=== PATIENT | male | born 1980 ===

== ENCOUNTER 2017-05-31 15:35 | Emergency (ER) | payer OTHER ==
--- NOTE | 2017-05-31 16:19 | C.PDOC ---
History Of Present Illness 36-year-old male, is referred from urgent care for GI bleed, patient states that last week he had a recurrent migraine, had routine blood done at this clinic, and the blood level was found to be "low" states it was "13." Patient was advised need to see GI specialist, and states appointment is pending to be scheduled. Last night, patient had another recurrent headache, associated with new onset hematemesis. Patient states last episode at 12:30 this morning. He is now complaining of nausea, and abdominal discomfort. Patient states he gets migraines frequently and has a Hx of chronic NSAID use for it. He denies hx of peptic ulcer disease or other GI problems. Patient had an episode of dark stool last week which resolved. Denies pepto-bismol use. Time Seen by Provider: 05/31/17 16:09 Chief Complaint (Nursing): GI Problem History Per: Patient History/Exam Limitations: no limitations Onset/Duration Of Symptoms: Days Current Symptoms Are (Timing): Still Present Past Medical History Reviewed: Historical Data, Nursing Documentation, Vital Signs Vital Signs: Last Vital Signs Temp 98.3 F 05/31/17 15:57 Pulse 75 05/31/17 15:57 Resp 18 05/31/17 15:57 BP 126/74 05/31/17 15:57 Pulse Ox 98 05/31/17 17:25 - Medical History PMH: Migraine, Seizures Family History: States: No Known Family Hx - Social History Hx Alcohol Use: Yes Hx Substance Use: No - Immunization History Hx Tetanus Toxoid Vaccination: Yes Hx Influenza Vaccination: Yes Hx Pneumococcal Vaccination: No Review Of Systems Constitutional: Negative for: Fever, Chills Cardiovascular: Negative for: Chest Pain, Palpitations Respiratory: Negative for: Shortness of Breath Gastrointestinal: Positive for: Melena (now resolved), Hematemesis. Negative for: Nausea, Vomiting, Abdominal Pain Neurological: Positive for: Headache. Negative for: Weakness, Numbness Physical Exam - Physical Exam Appears: Non-toxic, No Acute Distress Skin: Normal Color, Warm, Dry, No Pale, No Rash Head: Normacephalic Eye(s): bilateral: PERRL, Other (no pallor) Nose: Normal Oral Mucosa: Moist Lips: Normal Appearing Neck: Normal ROM Chest: Symmetrical Cardiovascular: Rhythm Regular, No Murmur Respiratory: Normal Breath Sounds, No Accessory Muscle Use Extremity: Normal ROM, No Deformity, No Swelling Neurological/Psych: Oriented x3, Normal Speech ED Course And Treatment - Laboratory Results Result Diagrams: 05/31/17 16:33 05/31/17 16:33 O2 Sat by Pulse Oximetry: 98 (RA) Pulse Ox Interpretation: Normal Reevaluation Time: 18:33 Reassessment Condition: Improved (NO RECUR GI BLEED SINCE INITIAL EVAL. VSS APPEARS COMFORTABLE. ADVISED START ON ANTACIDS, DIET MOD, FU GI) Disposition Counseled Patient/Family Regarding: Studies Performed, Diagnosis, Need For Followup, Rx Given - Disposition Referrals: Tawanda Briceno MD [Staff Provider] - YOUR,PMD [Other] Disposition: HOME/ ROUTINE Disposition Time: 18:34 Condition: IMPROVED Prescriptions: Famotidine [Pepcid AC] 10 mg PO QN #30 tablet Omeprazole Magnesium [Prilosec Otc] 20 mg PO QPM #30 tab Ondansetron [Zofran Odt] 4 mg PO TID PRN #9 odt PRN Reason: Nausea/Vomiting Instructions: Gastrointestinal Bleeding (DC) Forms: [facility] (Bangladeshi), Work Excuse - Clinical Impression Clinical Impression: Hematemesis - Scribe Statement The provider has reviewed the documentation as recorded by the Scribe (Jeny Tolentino) All medical record entries made by the Scribe were at my direction and personally dictated by me. I have reviewed the chart and agree that the record accurately reflects my personal performance of the history, physical exam, medical decision making, and the department course for this patient. I have also personally directed, reviewed, and agree with the discharge instructions and disposition.
[2017-05-31] MEDS ORDERED: Iohexol 240 (50 ml) PO ONE (16:27)
[2017-05-31 16:36] LABS: BASO % 0.8 % (0.0-2.0); EOS # 0.4 K/uL (0.0-0.7); HEMOGLOBIN 11.3 g/dL (12.0-18.0); LYMPH # 1.7 K/uL (1.0-4.3); LYMPH % 33.8 % (20.0-40.0); MEAN CELL VOLUME 71.9 fL (80.0-94.0); MEAN CORPUSCULAR HEMOGLOBIN 23.6 pg (27.0-31.0); MEAN CORPUSCULAR HGB CONC 32.8 g/dL (33.0-37.0); MEAN PLATELET VOLUME 9.2 fL (7.2-11.7); MONO # 0.5 K/uL (0.0-0.8); MONO % 9.9 % (0.0-10.0); NEUT # 2.5 K/uL (1.8-7.0); NEUT % 48.5 % (50.0-75.0); NRBC % 0.1 % (0.0-2.0); RBC 4.81 Mil/uL (4.40-5.90); RED CELL DISTRIBUTION WIDTH 14.1 % (11.5-14.5); WHITE BLOOD COUNT 5.1 K/uL (4.8-10.8)
[2017-05-31] MEDS ORDERED: Iohexol 240 (50 ml) ONE (16:44)
[2017-05-31 16:46] LABS: INR 1.1; PROTHROMBIN TIME 12.3 SECONDS (9.7-12.2)
[2017-05-31 17:11] LABS: ALBUMIN 4.3 g/dL (3.5-5.0); ALT/SGPT 37 U/L (21-72); AST/SGOT 35 U/L (17-59); BLOOD UREA NITROGEN 14 mg/dL (9-20); GFR AFRICAN-AMERICAN > 60; GFR NON-AFRICAN AMERICAN > 60
[2017-05-31] MEDS ORDERED: Iohexol 300 100 ML IJ ONE (17:28)
--- NOTE | 2017-05-31 18:28 | CT ---
PROCEDURE: CT Abdomen and Pelvis with contrast HISTORY: Hematemesis, WT LOSS COMPARISON: None. TECHNIQUE: Contrast dose: 100 cc Omnipaque 300 Radiation dose: Total exam DLP = 1105.50 MGy-cm. This CT exam was performed using one or more of the following dose reduction techniques: Automated exposure control, adjustment of the mA and/or kV according to patient size, and/or use of iterative reconstruction technique. FINDINGS: LOWER THORAX: The lung bases are clear. LIVER: Normal in size with homogeneous enhancement. No gross lesion or ductal dilatation. GALLBLADDER AND BILE DUCTS: No calcified gallstones. PANCREAS: Normal in size with homogeneous enhancement. No gross lesion or ductal dilatation. SPLEEN: Normal in size and appearance. ADRENALS: No discrete nodule. KIDNEYS AND URETERS: Both kidneys are normal in size with homogeneous enhancement. No hydronephrosis. No solid mass. VASCULATURE: Unremarkable. No aortic aneurysm. BOWEL: The small bowel loops are normal in caliber. There is moderate amount of stool in the ascending and transverse colon. There is apparent mild mural thickening in the descending colon. There is mild left colonic diverticulosis. No bowel dilatation or obstruction. APPENDIX: Normal appendix. PERITONEUM: No free fluid. No free air. LYMPH NODES: No enlarged lymph nodes. BLADDER: The urinary bladder is partially decompressed. There is apparent moderate circumferential mural thickening in the anterior bladder wall. REPRODUCTIVE: The prostate gland is normal in size. BONES: No acute fracture. Within normal limits for the patient's age. OTHER FINDINGS: None. IMPRESSION: 1. Left colonic diverticulosis. No CT evidence for acute diverticulitis. Apparent mild mural thickening in the descending colon is nonspecific. Evaluation of the colon is limited as contrast has not progressed to the colon at the time of the scanning. Findings could be related to underdistention however early nonspecific infectious/ inflammatory colitis cannot be excluded. Follow-up is advised. 2. Apparent mild mural thickening of the anterior urinary bladder wall is nonspecific and could be related to underdistention however cystitis cannot be excluded. Please correlate with urine analysis.
[2017-05-31 18:54] VITALS: BP 129/77; PULSE 59; RESP 20; TEMP 98.8; O2SAT 100
== END 2017-05-31 18:52 | disposition home or self-care (01) ==
LOC: C.ER 15:35
DX: K92.0 Hematemesis (principal)
CPT/HCPCS: 74177; 80053; 85025; 85610; 85730; 96374; 96375; 99284; C9113; J2405; Q9966; Q9967

== ENCOUNTER 2018-02-21 12:50 | Emergency (ER) | payer OTHER ==
[2017-07-12 10:24] VITALS: BMI 30.9
--- NOTE | 2018-02-21 16:57 | C.PDOC ---
History Of Present Illness 37 years old male presents to ED for evaluation of nose bleed and frontal headache that began today. Patient reports he woke up with a nose bleed today which is unusual, then he states the bleeding stopped, then he went to work and symptoms reoccurred with persistent and constant frontal headache associated with some nausea and loose bowel movements. Patient states as he went home from work, symptoms persisted and he experienced another nose bleed which prompted the ED visit. Patient states he does not feel better which prompted the ED visit. Denies cough, congestion, allergies, visual disturbance, fever, chills, neck pain, or any other complaints. Time Seen by Provider: 02/21/18 16:29 History Per: Patient History/Exam Limitations: no limitations Onset/Duration Of Symptoms: Hrs, Persistent Current Symptoms Are (Timing): Still Present Recent travel outside of the [place]: No Past Medical History Reviewed: Historical Data, Nursing Documentation, Vital Signs - Medical History PMH: Migraine, Seizures Family History: States: No Known Family Hx - Social History Hx Alcohol Use: Yes Hx Substance Use: No - Immunization History Hx Tetanus Toxoid Vaccination: Yes Hx Influenza Vaccination: Yes Hx Pneumococcal Vaccination: No Review Of Systems Constitutional: Negative for: Fever, Chills Gastrointestinal: Positive for: Nausea, Diarrhea. Negative for: Vomiting, Abdominal Pain Genitourinary: Negative for: Dysuria Skin: Negative for: Rash Neurological: Positive for: Headache. Negative for: Weakness, Numbness Physical Exam - Physical Exam Appears: Non-toxic, No Acute Distress, Other (Uncomfortable ) Skin: Normal Color, Warm, Dry, No Rash Head: Atraumatic, Normacephalic Eye(s): bilateral: Normal Inspection, PERRL, EOMI Oral Mucosa: Moist Neck: Normal ROM, Supple Chest: Symmetrical, No Tenderness Cardiovascular: Rhythm Regular, No Murmur Respiratory: Normal Breath Sounds, No Rales, No Rhonchi, No Wheezing Gastrointestinal/Abdominal: Soft, No Tenderness Extremity: Normal ROM Extremity: Bilateral: Atraumatic, Normal Color And Temperature, Normal ROM Pulses: Left Radial: Normal, Right Radial: Normal Neurological/Psych: Oriented x3, Normal Speech Gait: Steady ED Course And Treatment - Laboratory Results Result Diagrams: 02/21/18 18:14 02/21/18 18:14 Lab Interpretation: No Acute Changes - CT Scan/US CT Head Other Rad Studies (CT/US): Read By Radiologist, Radiology Report Reviewed CT/US Interpretation: Accession No. : [id number]. Patient Name / ID : STEVE LOPEZ / [id number]. Exam Date : 02/21/2018 18:27:18 ( Approved ). Study Comment : Sex / Age : M / 37Y. Creator : Yaneth Camacho MD. Dictator : Yaneth Camacho MD. Construction Flagger : Obstetrics Nurse : Yaneth Camacho MD. Approver2 : Report Date : 02/21/2018 18:56:05. My Comment : . Date of service: 02/21/2018. PROCEDURE: CT HEAD WITHOUT CONTRAST. HISTORY: Headache. COMPARISON: None available. TECHNIQUE: Axial computed tomography images were obtained through the head/brain without intravenous contrast. Radiation dose: Total exam DLP = 1105.1 mGy-cm. This CT exam was performed using one or more of the following dose reduction techniques: Automated exposure control, adjustment of the mA and/or kV according to patient size, and/or use of iterative reconstruction technique. FINDINGS: HEMORRHAGE: No intracranial hemorrhage. BRAIN: No mass effect or edema. The amor-white matter diffe rentiation appears intact. VENTRICLES: No hydrocephalus. CALVARIUM: Unremarkable. PARANASAL SINUSES: Unremarkable as visualized. No significant inflammatory changes. MASTOID AIR CELLS: Unremarkable as visualized. No inflammatory changes. OTHER FINDINGS: None. IMPRESSION: No acute intracr anial pathology identified. Progress Note: 7:20 Patient states only slightly better after Tylenol. Toradol IV ordered. Reevaluation Time: 21:14 Reassessment Condition: Improved Medical Decision Making Medical Decision Making: Plan: * Zofran * Tylenol * Blood work * CT Head Disposition Counseled Patient/Family Regarding: Studies Performed, Diagnosis, Need For Followup - Disposition Referrals: [facility] [Outside] Disposition: HOME/ ROUTINE Disposition Time: 21:14 Condition: IMPROVED Additional Instructions: Take Tylenol or Advil if needed for pain. Instructions: Headache, Adult, Nosebleeds - Clinical Impression Clinical Impression: Headache, Epistaxis not due to trauma - PA / ITALIAN LECTURER / Resident Statement MD/DO has reviewed & agrees with the documentation as recorded. - Scribe Statement The provider has reviewed the documentation as recorded by the Scribe Jun Hines All medical record entries made by the Scribe were at my direction and pers onally dictated by me. I have reviewed the chart and agree that the record accurately reflects my personal performance of the history, physical exam, medical decision making, and the department course for this patient. I have also personally directed, reviewed, and agree with the discharge instructions and disposition.
[2018-02-21 18:25] LABS: BASO % 0.9 % (0.0-2.0); EOS # 0.4 K/uL (0.0-0.7); HEMOGLOBIN 11.3 g/dL (12.0-18.0); LYMPH # 1.4 K/uL (1.0-4.3); LYMPH % 27.5 % (20.0-40.0); MEAN CELL VOLUME 72.6 fL (80.0-94.0); MEAN CORPUSCULAR HEMOGLOBIN 23.3 pg (27.0-31.0); MEAN CORPUSCULAR HGB CONC 32.1 g/dL (33.0-37.0); MONO # 0.5 K/uL (0.0-0.8); MONO % 10.3 % (0.0-10.0); NEUT # 2.7 K/uL (1.8-7.0); NEUT % 54.3 % (50.0-75.0); RBC 4.87 Mil/uL (4.40-5.90); RED CELL DISTRIBUTION WIDTH 14.8 % (11.5-14.5)
[2018-02-21 18:47] LABS: ALB/GLOB RATIO 1.4 (1.0-2.1); ALBUMIN 4.6 g/dL (3.5-5.0); ALT/SGPT 70 U/L (21-72); AST/SGOT 38 U/L (17-59); BLOOD UREA NITROGEN 18 mg/dL (9-20); CALCIUM 8.9 mg/dl (8.6-10.4); GFR NON-AFRICAN AMERICAN > 60
--- NOTE | 2018-02-21 18:59 | CT ---
Date of service: 02/21/2018 PROCEDURE: CT HEAD WITHOUT CONTRAST. HISTORY: Headache COMPARISON: None available TECHNIQUE: Axial computed tomography images were obtained through the head/brain without intravenous contrast. Radiation dose: Total exam DLP = 1105.1 mGy-cm. This CT exam was performed using one or more of the following dose reduction techniques: Automated exposure control, adjustment of the mA and/or kV according to patient size, and/or use of iterative reconstruction technique. FINDINGS: HEMORRHAGE: No intracranial hemorrhage. BRAIN: No mass effect or edema. The amor-white matter differentiation appears intact. VENTRICLES: No hydrocephalus. CALVARIUM: Unremarkable. PARANASAL SINUSES: Unremarkable as visualized. No significant inflammatory changes. MASTOID AIR CELLS: Unremarkable as visualized. No inflammatory changes. OTHER FINDINGS: None. IMPRESSION: No acute intracranial pathology identified.
[2018-02-21 22:26] VITALS: BP 136/88; PULSE 62; RESP 16; TEMP 98.1; O2SAT 98
== END 2018-02-21 21:32 | disposition home or self-care (01) ==
LOC: C.ER 12:50
DX: R51 Headache (principal); R04.0 Epistaxis
CPT/HCPCS: 70450; 80053; 85025; 96374; 96375; 99281; J1885; J2405

== ENCOUNTER 2018-04-09 20:27 | Emergency (ER) | payer OTHER ==
[2018-04-09 20:28] VITALS: BMI 30.9
[2018-04-09 20:47] VITALS: O2SAT 100
[2018-04-09] MEDS ORDERED: Acyclovir 500 MG in Dextrose 5% In Water 100 ML IV ONE (21:14)
[2018-04-09] MEDS ORDERED: oxyCODONE 5 mg Immediate Release Tab PO ONE (21:14)
--- NOTE | 2018-04-09 21:23 | C.PDOC ---
History Of Present Illness 37 year old male presents to the ER with right sided back pain that began 3 days ago, then developed a rash extending from the back extending to the right chest area around nipple level. Patient also reports fever on and off and headache on and off. He has Hx of headaches, usually takes tylenol with relief but he has been taking tylenol with motrin with little relief. Denies other symptoms or Hx of similar. Time Seen by Provider: 04/09/18 20:51 Chief Complaint (Nursing): Abnormal Skin Integrity History Per: Patient History/Exam Limitations: no limitations Onset/Duration Of Symptoms: Days Current Symptoms Are (Timing): Still Present Location Of Injury: Right: Back, Chest Quality Of Symptoms: Painful, Other (Rash) Recent travel outside of the [place]: No Past Medical History Reviewed: Historical Data, Nursing Documentation, Vital Signs Vital Signs: Last Vital Signs Temp 99.5 F 04/09/18 20:42 Pulse 89 04/09/18 20:42 Resp 18 04/09/18 20:42 BP 149/89 04/09/18 20:42 Pulse Ox 100 04/09/18 20:42 - Medical History PMH: Migraine, Seizures Family History: States: Unknown Family Hx - Social History Hx Alcohol Use: Yes Hx Substance Use: No - Immunization History Hx Tetanus Toxoid Vaccination: Yes Hx Influenza Vaccination: Yes Hx Pneumococcal Vaccination: No Review Of Systems Constitutional: Positive for: Fever ENT: Negative for: Nose Discharge, Nose Congestion, Throat Pain Cardiovascular: Negative for: Chest Pain, Palpitations Respiratory: Negative for: Cough, Shortness of Breath Gastrointestinal: Negative for: Nausea, Vomiting Musculoskeletal: Positive for: Back Pain Skin: Positive for: Rash Neurological: Positive for: Headache. Negative for: Weakness, Numbness Physical Exam - Physical Exam Appears: Non-toxic Skin: Warm, Dry, Rash (Vesicular erythematous at around T4 on chest extending to back) Head: Atraumatic, Normacephalic Eye(s): bilateral: Normal Inspection Oral Mucosa: Moist Neck: Normal, Supple Chest: Symmetrical, No Tenderness Cardiovascular: Rhythm Regular Respiratory: Normal Breath Sounds, No Rales, No Rhonchi, No Wheezing Gastrointestinal/Abdominal: Soft, No Tenderness Neurological/Psych: Oriented x3, Normal Speech ED Course And Treatment O2 Sat by Pulse Oximetry: 100 (room air) Pulse Ox Interpretation: Normal Medical Decision Making Medical Decision Making: Plan: * Acyclovir IVPB given here in the ED for shingles * Oxycodone PO given for pain Rx written for acyclovir and percocet. Advised staying away from immunocompromised individuals including infants and women. Return to the ED for any new or worsening symptoms. Disposition - Disposition Disposition: HOME/ ROUTINE Disposition Time: 20:50 Condition: GOOD Additional Instructions: JOHN WILSON, thank you for letting us take care of you today. Your provider was Ana Laura Garcia MD and you were treated for FEVER/RASH/HEADACHE/SOB/CONSTIPATION. The emergency medical care you received today was directed at your acute symptoms. If you were prescribed any medication, please fill it and take as directed. It may take several days for your symptoms to resolve. Return to the Emergency Department if your symptoms worsen, do not improve, or if you have any other problems. Please contact your doctor or call one of the physicians/clinics you have been referred to that are listed on the Patient Visit Information form that is included in your discharge packet. Bring any paperwork you were given at discharge with you along with any medications you are taking to your follow up visit. Our treatment cannot replace ongoing medical care by a primary care provider outside of the emergency department. Thank you for allowing the [facility] team to be part of your care today. If you had an X-Ray or CT scan: A Radiologist will review the ED reading if any change in treatment is needed we will contact you. If you had a blood, urine, or wound culture: It will take several days for the results, if any change in treatment is needed we will contact you. If you had an STI test: It will take 48 hours for the results. Please call after 1 week if you have not heard back. Prescriptions: RX: Acyclovir [Zovirax] 800 mg PO 5XD 7 Days tablet oxyCODONE/Acetaminophen [Percocet 5/325 mg Tab] 1 ea PO Q6H PRN #9 tab PRN Reason: Pain, Severe (8-10) Instructions: Shingles (DC) Forms: [employer] (American) - Clinical Impression Clinical Impression: Herpes zoster - Scribe Statement The provider has reviewed the documentation as recorded by the Scribadriana Gonzalez All medical record entries made by the Scribe were at my direction and personally dictated by me. I have reviewed the chart and agree that the record accurately reflects my personal performance of the history, physical exam, medical decision making, and the department course for this patient. I have also personally directed, reviewed, and agree with the discharge instructions and disposition.
[2018-04-09] MEDS ORDERED: oxyCODONE 5 mg Immediate Release Tab ONE (22:17)
[2018-04-09 22:43] VITALS: BP 134/78; PULSE 86; RESP 16; TEMP 99.4
== END 2018-04-09 23:31 | disposition home or self-care (01) ==
LOC: C.ER 20:27
DX: B02.9 Zoster without complications (principal)
CPT/HCPCS: 96374; 99283; J0133